=== PATIENT | female | born 1995 | race Caucasian/White ===

== ENCOUNTER 2021-04-20 15:11 | Emergency (ER) | payer SELFPAY ==
[~2021-04-20] VITALS: Ht 160 cm; Wt 48.5 kg
[2021-04-20] MEDS ORDERED: KETOROLAC TROMETHAMINE 30 MG INJ IM ONE (15:30)
[2021-04-20] MEDS ORDERED: KETOROLAC TROMETHAMINE 30 MG INJ ONE (15:40)
[2021-04-20 15:48] LABS: *URINE HCG, QUAL NEG (NEGATIVE)
[2021-04-20] MEDS ORDERED: IBUP-1955 PO (16:06)
[2021-04-20 16:30] VITALS: BP 116/80
== END 2021-04-20 16:10 | disposition home or self-care (01) ==
LOC: ER 15:18
DX: R07.89 Other chest pain (principal)
CPT/HCPCS: 71046; 84703; 96372; 99284; J1885; A4663